=== PATIENT | male | born 1955 | race Caucasian/White ===

== ENCOUNTER 2018-07-10 04:03 | Inpatient (IN) | payer SELFPAY ==
[~2018-07-10] VITALS: Ht 165.1 cm; Wt 59.0 kg
[2018-07-10] MEDS ORDERED: NALOXONE HCL 0.4 MG/ML VIAL ONE (04:14)
[2018-07-10] MEDS ORDERED: ETOMIDATE (2MG/ML) 20ML VIAL IV ONE ×4 (04:17→04:19)
[2018-07-10] MEDS ORDERED: MIDAZOLAM HCL 5 MG/ML-1ML VIAL ONE (04:17)
[2018-07-10] MEDS ORDERED: SUCCINYLCHOLINE CHLORIDE 20 MG/ML 10ML VIAL IV ONE ×3 (04:19→07:15)
[2018-07-10] MEDS ORDERED: SODIUM CHLORIDE 0.9% 1,000 ML IVB ONE (04:29)
[2018-07-10 04:44] LABS: Mean Corpuscular Volume 96.4 fL (80.0-100.0)
[2018-07-10 04:46] LABS: Mean Corpuscular Hemoglobin 30.3 pg (28.0-32.0); Mean Corpuscular Hgb Conc. 31.5 g/dL (32.0-36.0); Platelet Count (auto) 369 10^3/uL (140-450); Red Blood Cells 6.58 10^6/uL (4.5-5.90); Red Cell Distribution Width 15.3 % (11.8-14.3)
[2018-07-10 04:51] LABS: Hematocrit 63.4 % (41.0-53.0)
[2018-07-10 04:56] LABS: White Blood Cell 68.6 10^3/uL (4.4-10.8)
[2018-07-10 04:58] LABS: Basophils % (manual) 0 (0.0-2.0); Eosinophils % (manual) 0 (0-7); Myelocytes % 0; Reactive Lymphocytes 0
[2018-07-10 05:00] LABS: Alanine Aminotransferase 27 U/L (16-61); Albumin 2.8 g/dL (3.4-5.0); Anion Gap 27 (5-15); Blood Alcohol < 3.0 mg/dL (0-5); Blood Urea Nitrogen 48 mg/dL (7-18); Calcium 9.6 mg/dL (8.5-10.1); Chloride 88 mmol/L (98-107); Glucose 241 mg/dL (74-106); Magnesium 3.7 mg/dL (1.6-2.6); Sodium 124 mmol/L (136-145)
[2018-07-10 05:05] LABS: Alkaline Phosphatase 151 U/L (45-117); Aspartate Aminotransferase 66 U/L (15-37); BUN/Creatinine Ratio 12.3; Bilirubin, Total 1.3 mg/dL (0.2-1.0); GFR African American 20 mL/min; GFR Non-African American 17 mL/min; Total Protein 7.6 g/dL (6.4-8.2)
[2018-07-10] MEDS ORDERED: PIPERACILLIN-TAZOB 3.375GM 100 ML IV ONE (05:15)
[2018-07-10] MEDS ORDERED: VANCOMYCIN 1GM/250ML 250 ML IV ONE ×2 (05:15→12:00)
[2018-07-10] MEDS ORDERED: SODIUM CHLORIDE 0.9% 2,000 ML IV ONE (05:15)
[2018-07-10 05:16] LABS: INR 1.42 (0.9-1.15); Partial Thromboplastin Time 54.4 sec (23.78-33.04); Prothrombin Time 14.9 sec (9.27-12.13)
[2018-07-10 05:18] LABS: Carbon Dioxide 9 mmol/L (21-32)
[2018-07-10] MEDS ORDERED: SODIUM BICARBONATE 8.4 % INJ 50ML VIAL IV ONE ×2 (05:22→07:15)
[2018-07-10 05:45] VITALS: BP 85/58
[2018-07-10 06:16] LABS: Band Neutrophils % (manual) 17; Blast Cells 1; Lymphocytes % (manual) 11 (10.0-50.0); Metamyelocytes % 2; Monocytes % (manual) 11 (0-12)
[2018-07-10] MEDS ORDERED: PROPOFOL 100 ML IV ONE (06:17)
[2018-07-10] MEDS: PROPOFOL 100 ML IV SCH ×2 (06:25→11:14)
[2018-07-10 06:49] LABS: Lactic Acid w/Reflex 11.3 mmol/L (0.4-2.0)
[2018-07-10] MEDS ORDERED: NALOXONE HCL 0.4 MG/ML VIAL IV ONE (07:00)
[2018-07-10] MEDS ORDERED: MIDAZOLAM HCL 1MG/1ML-2 ML VIAL IV ONE (07:15)
[2018-07-10] MEDS ORDERED: NOREPINEPHRINE 8 MG/250ML KIT 250 ML IV SCH ×2 (08:32→09:28)
[2018-07-10] MEDS ORDERED: NOREPINEPHRINE 8 MG/250ML KIT 250 ML IV ONE (08:51)
[2018-07-10] MEDS ORDERED: PROPOFOL 100 ML IV SCH (09:28)
[2018-07-10] MEDS ORDERED: MORPHINE SULFATE 4 MG/ML SYR/VIAL IV PRN (09:30)
[2018-07-10] MEDS ORDERED: VASOPRESSIN 50 UNITS in D5W 5% 247.5 ML IV SCH (09:30)
[2018-07-10] MEDS ORDERED: SODIUM CHLORIDE 0.9% 1,000 ML IV SCH (09:30)
[2018-07-10] MEDS ORDERED: NITROGLYCERIN 0.4 MG SL TAB SL PRN (09:30)
[2018-07-10] MEDS ORDERED: SODIUM CHLORIDE 0.9% 3,000 ML IV ONE (09:30)
[2018-07-10] MEDS ORDERED: VANCOMYCIN PER PHARMACY 0 MG IV SCH (09:30)
[2018-07-10 10:20] VITALS: BP 94/64
[2018-07-10 11:03] VITALS: BP 116/57
[2018-07-10] MEDS ORDERED: HYDROCORTISONE SOD SUCC 100 MG/2ML INJ VIAL IV SCH (12:00)
[2018-07-10] MEDS ORDERED: PIPERACILLIN-TAZOB 2.25GM 50 ML IV SCH (14:00)
[2018-07-10 14:19] LABS: Promyelocytes % 0
== END 2018-07-10 11:50 | disposition short-term general hospital (02) | DRG 871 ==
LOC: ER 04:10 → OVERFLOW 09:28
PROVIDERS: ADMIT Nurse Practitioner Acute Care; ATTEND Nurse Practitioner Acute Care
PROC: 02HV33Z Insertion of Infusion Device into Superior Vena Cava, Percutaneous Approach (ICD-10-PCS; principal; 2018-07-10)
PROC: 5A1935Z Respiratory Ventilation, Less than 24 Consecutive Hours (ICD-10-PCS; 2018-07-10)
PROC: 0BH17EZ Insertion of Endotracheal Airway into Trachea, Via Natural or Artificial Opening (ICD-10-PCS; 2018-07-10)
DX: A41.9 Sepsis, unspecified organism (principal); R65.21 Severe sepsis with septic shock; N17.9 Acute kidney failure, unspecified; F17.210 Nicotine dependence, cigarettes, uncomplicated; M48.02 Spinal stenosis, cervical region
CPT/HCPCS: 31500; 36415; 36600; 51702; 70450; 71045; 72125; 80053; 80320; 82805; 83605; 83735; 83880; 84484; 85007; 85027; 85610; 85730; 86141; 86850; 86900; 86901; 87040; 87070; 87205; 94002; 94761; 96361; 96374; 96375; 96376; 99291; 99292; C1751; G0378; J0330; J2250; J2543; J2704; J7060